=== PATIENT | female | born 1955 | race Caucasian/White ===

== ENCOUNTER 2018-05-15 08:41 | Outpatient (CLI) | payer BC ==
[2018-05-15 10:23] LABS: #Eosinphils 0.1 thou/uL (0.0-0.7); #Lymphocytes 1.8 thou/uL (1.20-3.40); #Monocytes 0.5 thou/uL (0.11-0.59); #Neutrophils 3.3 thou/uL (1.40-6.50); %Basophils 0.7 % (0.0-1.0); %Eosinophils 1.8 % (0.0-10.0); %Lymphocytes 31.9 % (21.0-51.0); %Monocytes 8.1 % (0.0-10.0); %Neutrophils 57.5 % (42.0-75.0); Mean Corpuscular HGB CONC 31.9 g/dL (32.0-36.0); Mean Corpuscular Hemoglobin 28.2 pg (27.0-31.0); Mean Corpuscular Volume 88.4 fL (78.0-98.0); Mean Platelet Volume 8.4 fL (7.4-10.4); Platelet Count 200 thou/uL (130-400); RBC Distribution Width 12.7 % (11.5-14.5); Red Blood Cell (RBC) Count 4.24 mill/uL (4.20-5.40); White Blood Cell (WBC) Count 5.8 thou/uL (4.8-10.8)
[2018-05-15 10:28] LABS: INR-International Normal Ratio 0.9; PTT 27.8 SEC (22.9-36.1); Prothrombin Time 12.3 SEC (12.0-14.7)
[2018-05-15 10:34] LABS: Bilirubin Negative (Negative); Blood, Urine Negative (Negative); Clarity CLEAR (Clear); Glucose, Urine (Dipstick) >=1000 mg/dL (Negative); Leukocyte Negative (Negative); Nitrite Negative (Negative); Protein, Urine (Dipstick) Negative (Neg-Trace); Specific Gravity, Urine 1.036 (1.002-1.036); Urobilinogen 0.2 mg/dL (0.2-1.0)
[2018-05-15 10:37] LABS: Bacteria/HPF None Seen HPF (None Seen); Hyaline Casts/LPF 0-3 HYALINE CAST LPF (0-3 Hyaline); Pathc Cast-AUWi Flag 0.14 (0-2.49); RBC/HPF 0-3 HPF (0-3); Squamous Epithelial None Seen HPF (0-3); WBC/HPF 0-3 HPF (0-3)
[2018-05-15 10:44] LABS: Anion Gap 16 mmol/L (10-20); BUN (Urea Nitrogen) 18 mg/dL (9.8-20.1); Calc. Creatinine Clearance 0 mL/min (70-130); Calcium 9.8 mg/dL (7.8-10.44); Carbon Dioxide 23 mmol/L (23-31); Chloride 103 mmol/L (98-107); Estimated GFR-MDRD 75; Glucose 136 mg/dL (80-115); Potassium 4.2 mmol/L (3.5-5.1); Sodium 138 mmol/L (136-145)
--- NOTE | 2018-05-15 13:02 | RAD ---
CHEST 2 VIEWS: Date: 05/15/18 HISTORY: Preop. FINDINGS: No comparison. Cardiac silhouette and pulmonary vasculature are unremarkable. Mediastinum is midline. No confluent a ir space consolidation, pneumothorax, or pleural fluid. IMPRESSION: No active cardiopulmonary abnormalities are demonstrated. POS: [facility]
--- NOTE | 2018-05-16 07:29 | EKG ---
Test Reason : Blood Pressure : / mmHG Vent. Rate : 060 BPM Atrial Rate : 060 BPM P-R Int : 156 ms QRS Dur : 088 ms QT Int : 410 ms P-R-T Axes : 049 013 029 degrees QTc Int : 410 ms Normal sinus rhythm Cannot rule out Anterior infarct , age undetermined Poor anterior R wave progression Abnormal ECG When compared with ECG of 06-MAR-2011 09:59, [place] interval has increased Confirmed by DR. Aung GORDILLO ([id number]) on 05/16/2018 7:29:00 AM Referred By: ELVIN Confirmed By:DR. Aung GORDILLO
== END 2018-05-15 08:42 | disposition home or self-care (01) ==
LOC: LABBT 08:41
PROVIDERS: ATTEND Orthopaedic Surgery
DX: Z01.818 Encounter for other preprocedural examination (principal); M17.11 Unilateral primary osteoarthritis, right knee
CPT/HCPCS: 71046; 80048; 81001; 85025; 85610; 85730; 87081; 93005; 93010

== ENCOUNTER 2018-05-15 08:45 | Inpatient (IN) | payer BC, MEDICARE ==
[2018-05-27] MEDS ORDERED: Vancomycin HCl 1.5 GM in Sodium Chloride 0.9% 250 ML 300 ML IVPB SCH (07:30)
[2018-05-27] MEDS ORDERED: Midazolam HCl 2 mg/2 ml Vial ONE (07:46)
[2018-05-27] MEDS ORDERED: Fentanyl 100 MCG/2 ML VIAL ONE ×3 (07:46→11:54)
[2018-05-27] MEDS ORDERED: CEFAZOLIN/Water 2 GM/20 ML SYRINGE ONE (07:48)
[2018-05-27] MEDS ORDERED: Sodium Chloride 0.9% 100 ML ONE (07:48)
[2018-05-27] MEDS ORDERED: Ondansetron HCl/PF 4 MG/2 ML Vial IVP PRN ×3 (08:25→10:30)
[2018-05-27] MEDS ORDERED: Ketorolac Tromethamine 30 MG/ML VIAL IVP PRN (08:25)
[2018-05-27] MEDS ORDERED: Promethazine HCl 25 MG/ML VIAL IM PRN ×3 (08:25→10:30)
[2018-05-27] MEDS ORDERED: traMADol HCl 50 MG TAB PO PRN ×2 (08:25→08:55)
[2018-05-27] MEDS ORDERED: Zolpidem Tartrate 5 MG TAB PO PRN ×2 (08:25→08:55)
[2018-05-27] MEDS ORDERED: Fentanyl 100 MCG/2 ML VIAL SLOW IVP PRN ×2 (08:55)
[2018-05-27] MEDS ORDERED: Acetaminophen 325 MG TAB PO PRN (08:55)
[2018-05-27] MEDS ORDERED: Morphine 4 MG/ML Carpuject IVP PRN (08:55)
[2018-05-27] MEDS ORDERED: HYDROcodone/Acetaminophen 10/325 mg Tablet PO PRN ×2 (08:55)
[2018-05-27] MEDS ORDERED: diphenhydrAMINE 25 MG CAP PO PRN (08:55)
[2018-05-27] MEDS ORDERED: Tranexamic Acid 1,000 MG in Sodium Chloride 0.9% 100 ML IVPB SCH (09:00)
[2018-05-27] MEDS ORDERED: Promethazine HCl 25 MG/ML VIAL SLOW IVP PRN (10:30)
--- NOTE | 2018-05-27 11:24 | OP ---
PREOPERATIVE DIAGNOSIS: Degenerative joint disease, right knee. POSTOPERATIVE DIAGNOSIS: Degenerative joint disease, right knee. SURGEON: Cem Alatorre M.D. FOUNDATION ENGINEER: Waldemar Moraes PA-C. BLOOD LOSS: Minimal. SPECIMEN: None. DRAINS: None. COMPLICATIONS: None. IMPLANTS USED: [place] [employer] 4 femur, 5 tibia, 9 mm CSX3 polyethylene, and A29 patella. PROCEDURE IN DETAIL: After informed consent was obtained in the preoperative holding area. The sommer ent was taken to the operative suite where general anesthesia was induced. Once adequate level of ge neral anesthesia was obtained, the patient was positioned and a well-padded tourniquet was placed raj und the right proximal thigh. The right lower extremity was then prepped and draped in the usual yasmeen rile fashion. Prior to exsanguination, a time out was called and all members of the surgical team ag chele upon site, surgeon, and patient. The extremity was then exsanguinated and the tourniquet was ra ised. A midline longitudinal incision was then made directly over the patella extending two fingerbr eadths above the superior pole of the patella and two fingerbreadths inferior to the inferior patella r pole of the patella Deeper subcutaneous layers were dissected sharply and local bleeding was cont rolled with Bovie electrocautery. A quad tendon longitudinal split was then made sharply and a media n parapatellar arthrotomy was carried out both sharp and with Bovie electrocautery, carried down to o ne fingerbreadth medial to the tibial tubercle. The knee was then placed into flexion and the patell a was everted nicely, and a copious fat pad ectomy was performed allowing for greater exposure of the tibia. The computer-assisted distal femoral fiducial was then placed and pinned firmly, and the dis alondra femoral cutting guide was pinned firmly into place. The oscillating saw was then used to remove the appropriate amount of bone. The 4-in-1 cutting block was then placed on the distal femur and the oscillating saw was used to remove the appropriate amount of bone off of the anterior, posterior, an d chamfer cuts. After completion of bone cuts, the anterior cruciate ligament was resected sharply a nd the posterior cruciate ligament retractor was placed and the tibia was subluxed for better exposur e. Partial meniscectomies were carried out, and the tibial computer-assisted fiducial was pinned, an d the cutting guide was placed. Oscillating saw was then used to remove the bone with Hohmann retrac tors used to take care and protect the collateral ligaments. After the tibial resection was performe d, a laminar claim examiner was placed in between the freshened bone cuts. The knee placed at 90 degrees a nd further bilateral meniscectomies were carried out, and the curved osteotome and curettage was used to remove any excess bone spurs in the posterior compartment. The trial femoral component, tibial b aseplate were placed with the appropriate polyethylene trial insert with an appropriate polyethylene spacer and patellar button. The knee was taken through full range of motion with flexion and extensi on from 0-90 degrees and patellar broach squarely in the trochlea without any squinting or subluxatio n noted. The knee was also stable to varus and valgus stressing at 0, 15, 45, and 90 degrees of flex ion. The drawer was negative. All trial components were then removed and the keel punch was used to provide the appropriate defect in the tibia with a mallet. The freshened bone cuts were copiously i rrigated with pulsatile lavage of about 1-1/2 liters to remove all excess debris. The freshened bone cuts were then dried and with suction and lap sponge. The knee was placed in flexion and retractors were placed to provide access to all bone cuts. Tobramycin impregnated methyl methacrylate cement w as then placed on the freshened bone cuts and implants which were malleted firmly into place. Curett age and [place] elevators were used to remove any excess bone cement. The knee was placed into full ex tension and the patellar button was placed under compression, and the cement was allowed to cure. On ce completed, the components were again taken through full range of motion and copious irrigation of the knee was carried out with another liter of normal saline. All components were inspected fully wi th full range of motion and varus and valgus stressing. There was no laxity noted and full extension was observed clinically. Primary closure was accomplished with #2 interrupted Vicryl stitch of the a rthrotomy defect. This was oversewn with a #2 running Quill barbed stitch. The gravitational platel et system was then injected into the arthrotomy prior to closure. The subcutaneous layer was then cl osed with a running 0 barbed Monocryl stitch and skin closure accomplished with a running subcuticula r 3-0 Monocryl barbed Quill stitch and augmented with cement on the skin. Tourniquet was lowered. G ood spontaneous return of distal pulses was noted clinically and a sterile dressing was applied to th e incision. The procedure was terminated without any complications. The patient was awakened in the operative suite and the tourniquet was removed, and the patient was taken to the recovery room in st able condition.
--- NOTE | 2018-05-27 12:41 | RAD ---
RIGHT KNEE TWO VIEWS: HISTORY: Postop. FINDINGS: The bones are demineralized. There has been placement of a total knee prosthesis, which is in good p osition. No evidence of fracture. IMPRESSION: Placement of a total knee prosthesis. POS: [facility]
[2018-05-27 12:48] VITALS: BMI 41.2
[2018-05-27] MEDS: Aspirin 81 mg Enteric Coated Tablet PO SCH ×2 (13:43→19:36)
[2018-05-27] MEDS: Sodium Chloride 0.9% 1,000 ML IV SCH ×2 (13:44→17:58)
[2018-05-27] MEDS ORDERED: Ropivacaine 0.2% HCl/PF (40 MG/20 ML VIAL) ONE (13:47)
[2018-05-27] MEDS ORDERED: Ropivacaine 0.5% HCl/PF (150 MG/30 ML VIAL) ONE (13:47)
[2018-05-27] MEDS ORDERED: Ketorolac Tromethamine 30 MG/ML VIAL IM SCH (14:00)
[2018-05-27] MEDS ORDERED: PROPOFOL 200 MG/20 ML VIAL ONE (14:30)
[2018-05-27] MEDS ORDERED: Ondansetron HCl/PF 4 MG/2 ML Vial ONE (14:30)
[2018-05-27] MEDS ORDERED: Lidocaine 1% PF 5 ML VIAL ONE (14:30)
[2018-05-27] MEDS: CEFAZOLIN/Water 2 GM/20 ML SYRINGE SLOW IVP SCH (18:05)
[2018-05-27] MEDS: HYDROcodone/Acetaminophen 10/325 mg Tablet PO PRN (19:36)
[2018-05-27] MEDS: traMADol HCl 50 MG TAB PO PRN (21:15)
[2018-05-27] MEDS: Fentanyl 100 MCG/2 ML VIAL IV PRN (22:33)
[2018-05-28] MEDS: CEFAZOLIN/Water 2 GM/20 ML SYRINGE SLOW IVP SCH (02:58)
[2018-05-28] MEDS: HYDROcodone/Acetaminophen 10/325 mg Tablet PO PRN ×4 (03:01→20:00)
[2018-05-28] MEDS: Sodium Chloride 0.9% 1,000 ML IV SCH ×2 (03:46→15:43)
[2018-05-28 04:44] LABS: #Eosinphils 0.1 thou/uL (0.0-0.7); #Lymphocytes 1.5 thou/uL (1.20-3.40); #Monocytes 0.8 thou/uL (0.11-0.59); #Neutrophils 6.7 thou/uL (1.40-6.50); %Basophils 0.4 % (0.0-1.0); %Eosinophils 0.7 % (0.0-10.0); %Lymphocytes 16.1 % (21.0-51.0); %Neutrophils 73.8 % (42.0-75.0); Hemoglobin 11.3 g/dL (12.0-16.0); Mean Corpuscular Hemoglobin 28.1 pg (27.0-31.0); Mean Corpuscular Volume 90.8 fL (78.0-98.0); Mean Platelet Volume 8.9 fL (7.4-10.4); Platelet Count 181 thou/uL (130-400); RBC Distribution Width 12.9 % (11.5-14.5); Red Blood Cell (RBC) Count 4.02 mill/uL (4.20-5.40)
[2018-05-28 04:57] LABS: Anion Gap 12 mmol/L (10-20); BUN (Urea Nitrogen) 18 mg/dL (9.8-20.1); Calc. Creatinine Clearance 143 mL/min (70-130); Calcium 8.6 mg/dL (7.8-10.44); Carbon Dioxide 24 mmol/L (23-31); Chloride 105 mmol/L (98-107); Estimated GFR-MDRD 75; Glucose 158 mg/dL (80-115); Potassium 4.2 mmol/L (3.5-5.1); Sodium 137 mmol/L (136-145)
--- NOTE | 2018-05-28 06:26 | CON ---
DATE OF CONSULTATION: 05/28/2018 CHIEF COMPLAINT: Right knee replacement. HISTORY OF PRESENT ILLNESS: The patient is a 62-year-old female who has been having significant righ t knee degenerative joint disease since 2016. She has been receiving cortisone injections for such u ntil they finally quit working. She had finally seen Dr. Alatorre for definitive care and he has offer ed her a right knee replacement. This was performed on 05/27/2018. I have been consulted to take ca re of her medically. PAST MEDICAL HISTORY: Non-insulin dependent diabetes, hypertension, dyslipidemia, irritable bowel sy ndrome and narcolepsy. She also has chronic sinus infections. Degenerative joint disease. PAST SURGICAL HISTORY: Includes 2 sinus surgeries and now the aforementioned right knee replacement. SOCIAL HISTORY: She does not drink or smoke or use illicit drugs. ALLERGIES: No known drug allergies. CURRENT MEDICATIONS ON ADMISSION: Sulfasalazine 500 mg 2 b.i.d., sertraline 200 mg daily, metformin 1000 mg b.i.d., Crestor 10 mg daily, Farxiga 10 mg daily, amlodipine 10 mg daily, Adaptonyl 200 mg ev geo day. She also has been using Actos 45 mg daily, Lasix 40 mg q.a.m. p.r.n. edema. She has been u sing Celebrex 200 mg a day for the degenerative joint disease. REVIEW OF SYSTEMS: CONSTITUTIONAL: The patient denies any recent fever, fatigue, weakness, chills. HEENT: Denies heartburn, pain in ears, eyes, nose or throat without discharge or ulcers. CHEST: Denies shortness of breath or coughing. CARDIOVASCULAR: Denies chest pain or palpitations. ABDOMEN: Denies nausea, vomiting, diarrhea. GENITOURINARY: Denies blood in urine or stool or dysuria. EXTREMITIES: She has pain in her right knee, but no other clubbing or cyanosis noted. LYMPHATICS: Denies edema or swelling or lymphadenopathy. SKIN: No new rashes or lesions. PHYSICAL EXAMINATION: VITAL SIGNS: Blood pressure is 120/45, pulse 65, respirations 16, O2 sats 94%, temperature 98.4. Devaughn english weighs 271 pounds. GENERAL: This is an obese female, alert, oriented, and cooperative. HEENT: Normocephalic and atraumatic. Pupils equal, round, reactive to light. Extraocular muscles a re intact. TMs, nares, pharynx are clear. NECK: Supple, trachea midline. CHEST: Clear to auscultation. BREAST: Deferred. HEART: Regular rate and rhythm without murmur. ABDOMEN: Soft, nontender, without organomegaly. GENITOURINARY: Deferred. EXTREMITIES: Right is in an immobilizing device with dressing dry and intact on the right knee. Oth er extremities are without clubbing, cyanosis, or edema. Normal range of motion. SKIN: Without acute rashes or lesions. NEUROLOGIC: Cranial nerves are intact. Sensory exam is intact. Mental status is clear. LABORATORY FINDINGS: There is no lab work so far. ASSESSMENT: 1. Severe degenerative joint disease, right knee, status post right knee total replacement. 2. Hypertension. 3. Non-insulin diabetes. 4. Dyslipidemia. PLAN: We will continue her routine medications, monitoring her blood pressure, blood sugars as neede d and we will serially reevaluate her until discharge. Thank you for the consultation.
[2018-05-28] MEDS: sulfaSALAzine 500 MG TAB PO SCH ×2 (08:26→17:20)
[2018-05-28] MEDS: Multivitamin W/ Minerals 1 TAB PO SCH (08:27)
[2018-05-28] MEDS: Ferrous Gluconate 324 MG TAB PO SCH ×2 (08:27→20:01)
[2018-05-28] MEDS: Aspirin 81 mg Enteric Coated Tablet PO SCH ×2 (08:27→20:01)
[2018-05-28] MEDS: Senokot S 8.6-50 MG TAB PO SCH ×2 (08:27→20:01)
[2018-05-28] MEDS: Alogliptin 25 MG TAB PO SCH (08:28)
[2018-05-28] MEDS: metFORMIN 500 MG TAB PO SCH ×2 (08:28→17:23)
[2018-05-28] MEDS: Losartan/Hydrochlorothiazide 100 mg/25 mg Tablet PO SCH (08:35)
[2018-05-28] MEDS: Ropivacaine HCl/PF 250 ML in Premix Bag 1 BAG NERVE BLCK SCH (10:38)
[2018-05-28] MEDS: Fentanyl 100 MCG/2 ML VIAL IV PRN ×2 (11:00→13:29)
[2018-05-28] MEDS: Rosuvastatin 10 MG TAB PO SCH (20:01)
[2018-05-29] MEDS: HYDROcodone/Acetaminophen 10/325 mg Tablet PO PRN ×3 (03:04→18:20)
[2018-05-29] MEDS: Sodium Chloride 0.9% 1,000 ML IV SCH ×3 (03:54→22:21)
[2018-05-29 05:31] LABS: Hemoglobin 10.4 g/dL (12.0-16.0); Mean Corpuscular HGB CONC 31.6 g/dL (32.0-36.0); Mean Corpuscular Hemoglobin 28.2 pg (27.0-31.0); Mean Corpuscular Volume 89.2 fL (78.0-98.0); Mean Platelet Volume 8.8 fL (7.4-10.4); Platelet Count 168 thou/uL (130-400); RBC Distribution Width 12.8 % (11.5-14.5); Red Blood Cell (RBC) Count 3.69 mill/uL (4.20-5.40)
[2018-05-29] MEDS: metFORMIN 500 MG TAB PO SCH ×2 (08:59→18:09)
[2018-05-29] MEDS: sulfaSALAzine 500 MG TAB PO SCH ×2 (09:00→18:09)
[2018-05-29] MEDS: Losartan/Hydrochlorothiazide 100 mg/25 mg Tablet PO SCH (09:02)
[2018-05-29] MEDS: Aspirin 81 mg Enteric Coated Tablet PO SCH ×2 (09:02→20:31)
[2018-05-29] MEDS: Ferrous Gluconate 324 MG TAB PO SCH ×2 (09:02→20:30)
[2018-05-29] MEDS: Senokot S 8.6-50 MG TAB PO SCH ×2 (09:02→20:31)
[2018-05-29] MEDS: Multivitamin W/ Minerals 1 TAB PO SCH (09:02)
[2018-05-29] MEDS: Alogliptin 25 MG TAB PO SCH (09:02)
[2018-05-29] MEDS ORDERED: guaiFENesin ER 600 MG TAB PO SCH (11:30)
[2018-05-29] MEDS: Ropivacaine HCl/PF 250 ML in Premix Bag 1 BAG NERVE BLCK SCH (14:58)
[2018-05-29] MEDS: guaiFENesin ER 600 MG TAB PO SCH (20:30)
[2018-05-29] MEDS: Rosuvastatin 10 MG TAB PO SCH (20:31)
[2018-05-30] MEDS: HYDROcodone/Acetaminophen 10/325 mg Tablet PO PRN ×4 (02:27→23:53)
[2018-05-30] MEDS: Sodium Chloride 0.9% 1,000 ML IV SCH ×2 (06:19→18:40)
[2018-05-30] MEDS: Ferrous Gluconate 324 MG TAB PO SCH ×2 (10:40→20:17)
[2018-05-30] MEDS: Aspirin 81 mg Enteric Coated Tablet PO SCH ×2 (10:40→20:17)
[2018-05-30] MEDS: Multivitamin W/ Minerals 1 TAB PO SCH (10:41)
[2018-05-30] MEDS: guaiFENesin ER 600 MG TAB PO SCH ×2 (10:41→20:18)
[2018-05-30] MEDS: metFORMIN 500 MG TAB PO SCH ×2 (10:42→16:24)
[2018-05-30] MEDS: Senokot S 8.6-50 MG TAB PO SCH ×2 (10:45→20:18)
[2018-05-30] MEDS ORDERED: Labetalol HCl 100 MG/20 ML VIAL ONE (13:26)
[2018-05-30] MEDS: Losartan/Hydrochlorothiazide 100 mg/25 mg Tablet PO SCH (13:56)
[2018-05-30] MEDS: Alogliptin 25 MG TAB PO SCH (13:56)
[2018-05-30] MEDS: sulfaSALAzine 500 MG TAB PO SCH ×2 (13:56→16:25)
[2018-05-30] MEDS: Rosuvastatin 10 MG TAB PO SCH (20:18)
[2018-05-30] MEDS: traMADol HCl 50 MG TAB PO PRN (20:35)
[2018-05-31] MEDS: Sodium Chloride 0.9% 1,000 ML IV SCH ×3 (05:21→20:42)
[2018-05-31] MEDS: Losartan/Hydrochlorothiazide 100 mg/25 mg Tablet PO SCH (09:24)
[2018-05-31] MEDS: metFORMIN 500 MG TAB PO SCH ×2 (09:24→17:06)
[2018-05-31] MEDS: guaiFENesin ER 600 MG TAB PO SCH ×2 (09:24→20:37)
[2018-05-31] MEDS: Ferrous Gluconate 324 MG TAB PO SCH ×2 (09:24→20:38)
[2018-05-31] MEDS: Alogliptin 25 MG TAB PO SCH (09:24)
[2018-05-31] MEDS: HYDROcodone/Acetaminophen 10/325 mg Tablet PO PRN ×2 (09:24→20:41)
[2018-05-31] MEDS: Aspirin 81 mg Enteric Coated Tablet PO SCH ×2 (09:24→20:37)
[2018-05-31] MEDS: Senokot S 8.6-50 MG TAB PO SCH ×2 (09:24→20:37)
[2018-05-31] MEDS: Multivitamin W/ Minerals 1 TAB PO SCH (09:24)
--- NOTE | 2018-05-31 11:18 | PRG ---
DATE OF SERVICE: 05/31/2018 SUBJECTIVE: Ludivina is now postoperative day #4 from a right total knee arthroplasty. She is doing r elatively well. She is slowly improving with her distances and she is able to ambulate about 100 fee t now. OBJECTIVE: VITAL SIGNS: Temperature 98, pulse 76, respiratory rate 18, O2 saturation on room air 93%, blood pre ssure . GENERAL: She is alert and oriented to person, place, time, and situation. Grossly nonfocal. EXTREMITIES: Incision is clean and closed without erythema. She is neurovascularly intact in the in volved extremity. ASSESSMENT: A 62-year-old white female postop day #4, right total knee arthroplasty, doing well. PLAN: Continue current Medicare, rehabilitation placement pending.
[2018-05-31] MEDS: Rosuvastatin 10 MG TAB PO SCH (20:37)
[2018-06-01] MEDS: HYDROcodone/Acetaminophen 10/325 mg Tablet PO PRN ×3 (05:02→21:05)
[2018-06-01] MEDS: metFORMIN 500 MG TAB PO SCH ×2 (09:58→17:58)
[2018-06-01] MEDS: Alogliptin 25 MG TAB PO SCH (09:59)
[2018-06-01] MEDS: Ferrous Gluconate 324 MG TAB PO SCH ×2 (09:59→20:56)
[2018-06-01] MEDS: guaiFENesin ER 600 MG TAB PO SCH ×2 (10:00→20:55)
[2018-06-01] MEDS: Losartan/Hydrochlorothiazide 100 mg/25 mg Tablet PO SCH (10:00)
[2018-06-01] MEDS: Multivitamin W/ Minerals 1 TAB PO SCH (10:00)
[2018-06-01] MEDS: Aspirin 81 mg Enteric Coated Tablet PO SCH ×2 (10:00→20:55)
[2018-06-01] MEDS: Senokot S 8.6-50 MG TAB PO SCH ×2 (10:01→21:02)
[2018-06-01] MEDS: Sodium Chloride 0.9% 1,000 ML IV SCH ×2 (10:06→20:58)
[2018-06-01] MEDS: Rosuvastatin 10 MG TAB PO SCH (20:54)
[2018-06-02] MEDS: HYDROcodone/Acetaminophen 10/325 mg Tablet PO PRN ×2 (02:18→09:38)
[2018-06-02] MEDS: Sodium Chloride 0.9% 1,000 ML IV SCH ×2 (06:49→15:11)
[2018-06-02] MEDS ORDERED: cloNIDine 0.1 MG TAB PO SCH (09:00)
[2018-06-02] MEDS: Losartan/Hydrochlorothiazide 100 mg/25 mg Tablet PO SCH (09:01)
[2018-06-02] MEDS: Alogliptin 25 MG TAB PO SCH (09:01)
[2018-06-02] MEDS: Ferrous Gluconate 324 MG TAB PO SCH (09:01)
[2018-06-02] MEDS: Multivitamin W/ Minerals 1 TAB PO SCH (09:02)
[2018-06-02] MEDS: Aspirin 81 mg Enteric Coated Tablet PO SCH (09:02)
[2018-06-02] MEDS: metFORMIN 500 MG TAB PO SCH ×2 (09:02→17:31)
[2018-06-02] MEDS: Senokot S 8.6-50 MG TAB PO SCH (09:02)
[2018-06-02] MEDS: guaiFENesin ER 600 MG TAB PO SCH (09:02)
[2018-06-02 15:34] VITALS: BP 134/76; TEMP 98.6
== END 2018-06-02 20:15 | DRG 470 ==
LOC: SJJU 05-27 06:54
PROVIDERS: ADMIT Orthopaedic Surgery; ATTEND Orthopaedic Surgery
PROC: 0SRC0J9 Replacement of Right Knee Joint with Synthetic Substitute, Cemented, Open Approach (ICD-10-PCS; principal; 2018-05-27)
DX: M17.11 Unilateral primary osteoarthritis, right knee (principal); E11.9 Type 2 diabetes mellitus without complications; I10 Essential (primary) hypertension; E78.5 Hyperlipidemia, unspecified; K58.9 Irritable bowel syndrome, unspecified; G47.419 Narcolepsy without cataplexy
CPT/HCPCS: 36415; 36416; 80048; 85027; 96374; C1713; C1776; G8978-GP-CL; G8979-GP-CJ; G8987-GO-CK; G8988-GO-CI; J1885; J2001; J2250; J2405; J2704; J2795; J3010; J3370; J7050

== ENCOUNTER 2018-05-23 12:10 | Outpatient (CLI) | payer BC | END 2018-05-23 12:11 | disposition home or self-care (01) | LOC: LABBT 12:10 | PROVIDERS: ATTEND Orthopaedic Surgery | DX: Z01.812 Encounter for preprocedural laboratory examination (principal); M17.11 Unilateral primary osteoarthritis, right knee | CPT/HCPCS: 86850; 86900; 86901 ==

== ENCOUNTER 2019-09-16 11:00 | Inpatient (IN) | payer BC ==
[2019-09-16 11:40] LABS: PTT 29.9 SEC (22.9-36.1)
[2019-09-16 11:55] LABS: #Basophils 0.1 thou/uL (0.0-0.2); #Eosinphils 0.2 thou/uL (0.0-0.7); #Monocytes 0.7 thou/uL (0.11-0.59); %Basophils 0.6 % (0.0-1.0); %Lymphocytes 18.2 % (21.0-51.0); %Neutrophils 73.1 % (42.0-75.0); Hemoglobin 11.6 g/dL (12.0-16.0); MDiff Complete? YES; Mean Corpuscular HGB CONC 33.4 g/dL (32.0-36.0); Mean Corpuscular Hemoglobin 29.5 pg (27.0-31.0); Mean Corpuscular Volume 88.1 fL (78.0-98.0); Platelet Count Less than 2 thou/uL (130-400); Platelet Morphology Comment Appears Decreased; Polychromasia SLIGHT = 2-3 cells (100X) (0-2/hpf); Red Blood Cell (RBC) Count 3.93 mill/uL (4.20-5.40); Reflex for Review?? YES; White Blood Cell (WBC) Count 10.9 thou/uL (4.8-10.8)
[2019-09-16 12:01] LABS: ALT (SGPT) 9 U/L (8-55); AST (SGOT) 13 U/L (5-34); Alkaline Phosphatase 83 U/L (40-110); Anion Gap 16 mmol/L (10-20); BUN (Urea Nitrogen) 34 mg/dL (9.8-20.1); Bilirubin, Total 0.3 mg/dL (0.2-1.2); Calc. Creatinine Clearance 0 mL/min (70-130); Calcium 9.4 mg/dL (7.8-10.44); Carbon Dioxide 23 mmol/L (23-31); Chloride 103 mmol/L (98-107); Estimated GFR-MDRD 69; Globulin 2.7 g/dL (2.4-3.5); Glucose 197 mg/dL (80-115); Potassium 4.1 mmol/L (3.5-5.1); Protein, Total 6.7 g/dL (6.0-8.3); Sodium 138 mmol/L (136-145)
[2019-09-16 12:36] LABS: Fibrinogen 452 mg/dL (253-463)
[2019-09-16 12:37] LABS: PTT 31.3 SEC (22.9-36.1); Prothrombin Time 13.3 SEC (12.0-14.7)
[2019-09-16 12:38] LABS: D-Dimer Test 1.49 *mcg/mL (0.27-0.43)
[2019-09-16 12:41] LABS: Platelet Count 3 thou/uL (130-400)
[2019-09-16] MEDS ORDERED: Acetaminophen 325 MG TAB PO PRN (13:05)
[2019-09-16] MEDS ORDERED: Ondansetron PF 4 MG/2 ML Vial IVP PRN ×2 (13:05→19:31)
[2019-09-16] MEDS ORDERED: Ondansetron ODT 4 MG TAB SL PRN (13:05)
[2019-09-16] MEDS ORDERED: Pantoprazole 40 MG VIAL ONE (13:08)
[2019-09-16] MEDS ORDERED: Dexamethasone 4 mg/ml Vial ONE (13:08)
[2019-09-16] MEDS ORDERED: predniSONE 20 MG TAB ONE (13:09)
[2019-09-16 13:17] LABS: FSP-Qualitative Normal (Normal)
[2019-09-16 16:32] VITALS: BMI 36.4
[2019-09-16] MEDS ORDERED: Zolpidem Tartrate 5 MG TAB PO PRN (19:25)
[2019-09-16] MEDS ORDERED: Dextrose 5% in Water 1,000 ML IV PRN (19:30)
[2019-09-16] MEDS ORDERED: Dextrose 50% Abboject 50 ML SYRINGE IVP PRN (19:30)
[2019-09-16] MEDS: metFORMIN 500 MG TAB PO SCH (20:46)
[2019-09-16 21:52] LABS: Hemoglobin 9.8 g/dL (12.0-16.0)
[2019-09-16 22:01] LABS: Platelet Count Less than 2 thou/uL (130-400)
[2019-09-16] MEDS: Insulin Regular 300 UNITS/3 ML VIAL SC PRN (22:43)
[2019-09-16] MEDS ORDERED: Insulin Regular 300 UNITS/3 ML VIAL SC SCH (22:45)
[2019-09-17] MEDS ORDERED: cloNIDine 0.1 MG TAB PO PRN
[2019-09-17] MEDS: Insulin Regular 300 UNITS/3 ML VIAL SC PRN ×8 (00:08→20:13)
[2019-09-17 05:12] LABS: Hemoglobin A1c 7.8 % (4.0-6.0)
[2019-09-17 05:18] LABS: Hemoglobin 9.1 g/dL (12.0-16.0); Mean Corpuscular HGB CONC 33.6 g/dL (32.0-36.0); Mean Corpuscular Hemoglobin 29.8 pg (27.0-31.0); Mean Corpuscular Volume 88.8 fL (78.0-98.0); Platelet Count Less than 2 thou/uL (130-400); RBC Distribution Width 11.9 % (11.5-14.5); Red Blood Cell (RBC) Count 3.06 mill/uL (4.20-5.40); White Blood Cell (WBC) Count 9.6 thou/uL (4.8-10.8)
[2019-09-17 05:57] LABS: #Lymphocytes 1.5 thou/uL (1.20-3.40); #Monocytes 0.6 thou/uL (0.11-0.59); #Neutrophils 7.4 thou/uL (1.40-6.50); %Basophils 0.3 % (0.0-1.0); %Eosinophils 0.5 % (0.0-10.0); %Lymphocytes 15.8 % (21.0-51.0); %Monocytes 6.3 % (0.0-10.0); %Neutrophils 77.1 % (42.0-75.0); Platelet Morphology Comment Appears Decreased
--- NOTE | 2019-09-17 07:55 | HP ---
CHIEF COMPLAINT: On admission idiopathic thrombocytopenic purpura with a platelet count less than 2. HISTORY OF PRESENT ILLNESS: The patient is a 64-year-old female who states 3 days prior to coming to the hospital, she started to have blood in her mouth. She woke up, had to spit out this blood throughout the second day. It would persists on and off. Finally on the day of admission, she noticed significant petechiae and bruising in her lower extremities, underneath her underwire of her bra was bruising where she had scratched herself the night before with excessive bruising and now, she would go to the sink and have a mouth full of blood and spit that out, so that she finally came to the ER, where a level was checked and her platelets were less than 2. At this point, Dr. Dowd was contacted for admission and the patient has never had anything similar to this since he has been treating her over the last 25 years. PAST MEDICAL HISTORY: Significant for type 2 diabetes, hypertension, dyslipidemia, depression, irritable bowel syndrome, and narcolepsy. PAST SURGICAL HISTORY: Includes a right knee surgery and a D and C in the past. PSYCHIATRIC HISTORY: She has not been hospitalized for any illnesses, but has struggled with depression in the past. 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 Does not smoke or drink. ALLERGIES: SHE IS THOUGHT TO HAVE DIARRHEA FROM LEVAQUIN AND CLINDAMYCIN, BUT NOT SURE WHAT HAPPENS ON THE LEVAQUIN FOR SURE. CURRENT MEDICATIONS: 1. Metformin 1000 mg b.i.d. 2. Losartan hydrochlorothiazide 100/25 daily. 3. Sulfasalazine 500 mg b.i.d. Her additional medicines include: 1. Sertraline 200 mg a day. 2. Actos 45 mg a day. 3. Modafinil 200 mg a day. 4. Farxiga 10 mg a day. 5. Celecoxib 200 mg a day. 6. Atorvastatin 10 mg a day. 7. Amlodipine 10 mg a day. 8. Occasional hydrocodone for severe knee pain. REVIEW OF SYSTEMS: CONSTITUTIONAL: Admits to general fatigue, malaise, and tiredness. No fevers, however. HEENT: Has had sores and blood draining from the mouth, nothing from the ears or nose. CHEST: Denies cough or shortness of breath. CARDIOVASCULAR: Denies palpitations or chest pain. GI: Denies nausea, vomiting, or diarrhea. : Denies blood in urine or stool. MUSCULOSKELETAL: Has chronic joint pain in her major joints. SKIN: Significant for bruising diffusely. NEUROLOGIC: Mentation is clear. No hallucinations, delusions, areas of hypesthesia, or anesthesia. PHYSICAL EXAMINATION: VITAL SIGNS: On admission, blood pressure 167/71, pulse is 76, temperature 99.3, respirations 16, O2 saturation 93% on room air. She weighs 247 pounds. GENERAL: This is a well-developed, well-nourished, elderly female, alert, oriented, and cooperative. HEENT: Normocephalic, atraumatic. Pupils are equal, round, and reactive to light. Extraocular muscles are intact. TMs and nares are clear. Pharynx has blebs of hematoma and blood in her pharynx. Conjunctivae without icterus or hemorrhage. NECK: Supple. Trachea midline. CHEST: Clear to auscultation. HEART: Regular rate and rhythm without murmur. BREASTS: Deferred. ABDOMEN: Soft without hepatosplenomegaly. : Deferred. EXTREMITIES: Without clubbing, cyanosis, or edema. Symmetrical lower extremity tattooing from hemosiderin. NEUROLOGIC: Cranial nerves are intact. Mental status clear. Sensory exam is intact. Gait and cerebral function not tested. LABORATORY DATA: Thus far shows WBCs 10.9, hemoglobin 11.6, hematocrit 34.6, platelets less than 2. Sodium 138, potassium 4.1, chloride 103, CO2 of 23, BUN is 34, creatinine 0.83 with a GFR of 69, glucose 197. Liver functions normal. PT is 13, PTT is 29.9 with an INR of 1. D-dimer slightly elevated at 1.49. ASSESSMENT: 1. Idiopathic thrombocytopenic purpura. 2. Hypertension. 3. Diffuse arthritis. 4. Dyslipidemia. 5. Narcolepsy. 6. Tuu-zhbdlyu-wlbwuirww diabetes. PLAN: Consistent carb diet, a.c. and at bedtime fingerstick glucose evaluations with a mild sliding scale. Platelets have been given. We will reassess H and H over the next several hours and consult Hematology in the morning for further evaluation. Job ID: [id number]
[2019-09-17] MEDS ORDERED: predniSONE 20 MG TAB PO SCH (08:00)
[2019-09-17] MEDS ORDERED: OCTAGAM 10% (5 GM/50 ML VIAL) IVPB SCH (08:30)
[2019-09-17] MEDS ORDERED: Pantoprazole 40 MG VIAL IVP SCH (09:00)
[2019-09-17] MEDS ORDERED: Insulin Glargine 20 UNITS in Pre-Filled Syringe 1 EACH SC SCH (09:00)
[2019-09-17] MEDS ORDERED: FLU VACC TS2019-20(65YR UP)/PF 180 MCG/0.5 ML SYRINGE IM ONE (09:00)
[2019-09-17] MEDS ORDERED: Dexamethasone 40 MG in Sodium Chloride 0.9% 50 ML IVPB SCH (09:00)
[2019-09-17] MEDS ORDERED: Prevnar 13-Val Conj/PF 0.5 ML SYRINGE IM ONE (09:00)
[2019-09-17] MEDS ORDERED: Losartan 25 MG TAB PO SCH (09:00)
[2019-09-17] MEDS ORDERED: Amlodipine 5 MG TAB PO SCH (09:00)
--- NOTE | 2019-09-17 09:37 | PDOC.MOPN ---
- Vital Signs Vital Signs: Vital Signs (12 hours) Temp Pulse Pulse Resp BP BP Pulse Ox 09/17/19 08:34 169/69 H 09/17/19 08:08 97.8 F 71 18 96 09/17/19 06:20 97.7 F 63 18 143/64 H 95 09/17/19 06:05 97.8 F 66 18 147/67 H 95 09/17/19 04:11 97.7 F 64 16 160/70 H 96 09/17/19 02:10 97.6 F 65 18 145/65 H 96 09/17/19 00:50 97.9 F 73 18 157/70 H 100 09/17/19 00:20 97.7 F 70 18 145/66 H 100 09/16/19 23:20 97.5 F L 73 18 188/80 H 100 09/16/19 22:55 98.3 F 73 18 163/72 H 96 Weight Weight 247 lb - Labs Result Diagrams: 09/17/19 04:25 09/16/19 11:21 Lab results: Laboratory Results - last 24 hr 09/17/19 08:13: POC Glucose 123 H 09/17/19 06:02: POC Glucose 190 H 09/17/19 04:25: Hemoglobin A1c 7.8 H 09/17/19 04:25: Triglycerides 176 H, Cholesterol 184, LDL Cholesterol, Calc 112 , HDL Cholesterol 37, Heart Disease Risk Ratio 5.0 09/17/19 04:25: WBC 9.6, RBC 3.06 L, Hgb 9.1 L, Hct 27.1 L, MCV 88.8, MCH 29.8, MCHC 33.6, RDW 11.9, Plt Count Less than 2 L*, MPV TNP, Neutrophils % 77.1 H, Neutrophils % (Manual) Not Reportable, Lymphocytes % 15.8 L, Monocytes % 6.3, Eosinophils % 0.5, Basophils % 0.3, Neutrophils # 7.4 H, Lymphocytes # 1.5, Monocytes # 0.6 H, Eosinophils # 0.0, Basophils # 0.0, Plt Morphology Comment Appears Decreased L 09/17/19 04:04: POC Glucose 275 H 09/17/19 01:57: POC Glucose 384 H 09/16/19 23:56: POC Glucose 489 H 09/16/19 22:03: POC Glucose Greater than 550 H* 09/16/19 21:24: Hgb 9.8 L, Hct 30.2 L, Plt Count Less than 2 L* 09/16/19 12:05: Plt Count 3 L*, PT 13.3, INR 1.0, APTT 31.3, Fibrinogen 452, Fibrin Degrad Products Normal, Fibrin Degrad Prod, Qt Not Reportable, D-Dimer 1.49 H 09/16/19 11:21: Sodium 138, Potassium 4.1, Chloride 103, Carbon Dioxide 23, Anion Gap 16, BUN 34 H, Creatinine 0.83, Estimated GFR (MDRD) 69, Glucose 197 H , Calcium 9.4, Total Bilirubin 0.3, AST 13, ALT 9, Alkaline Phosphatase 83, Serum Total Protein 6.7, Albumin 4.0, Globulin 2.7, Albumin/Globulin Ratio 1.5 09/16/19 11:21: WBC 10.9 H, RBC 3.93 L, Hgb 11.6 L, Hct 34.6 L, MCV 88.1, MCH 29.5, MCHC 33.4, RDW 12.0, Plt Count Less than 2 L*, MPV TNP, Neutrophils % 73.1, Lymphocytes % 18.2 L, Monocytes % 6.0, Eosinophils % 2.0, Basophils % 0.6 , Neutrophils # 8.0 H, Lymphocytes # 2.0, Monocytes # 0.7 H, Eosinophils # 0.2, Basophils # 0.1, Plt Morphology Comment Appears Decreased L, Polychromasia SLIGHT = 2-3 cells 09/16/19 11:21: PT 13.0, INR 1.0, APTT 29.9 09/16/19 11:21: Blood Type A POSITIVE, Antibody Screen NEGATIVE Status: lab reviewed by me
[2019-09-17] MEDS: Dexamethasone Sod Phosphate 40 MG in Sodium Chloride 0.9% 50 ML IVPB SCH (09:49)
[2019-09-17] MEDS: Hydrochlorothiazide 25 MG TAB PO SCH (09:51)
[2019-09-17] MEDS: metFORMIN 500 MG TAB PO SCH ×2 (09:52→20:15)
[2019-09-17] MEDS ORDERED: OCTAGAM IVPB SCH (10:00)
[2019-09-17] MEDS ORDERED: ADMIXTURE FEE IVPB SCH (10:00)
--- NOTE | 2019-09-17 13:47 | CON ---
DATE OF CONSULTATION: REASON FOR CONSULTATION: Thrombocytopenia. HISTORY OF PRESENT ILLNESS: Ms. Abernathy is a pleasant 64-year-old female, who noticed 3 days ago that she was having sores in her mouth and bleeding. She did not think much of it until yesterday when she woke up with a significant amount of blood on her gown and arm and she had a rash on her legs. She presented to the emergency room for evaluation. Her platelet count was less than 2, her hemoglobin was 11.6, and her WBCs were 10.9. She states that she did not have any nosebleeds, but had melena. She had bruising underneath her breasts from her bra, all occurring within the last few days. She denies any medical history of thrombocytopenia. Review of labs in the computer showed a platelet count of 295,000 in 2018. She states she had routine labs at her primary care physician several weeks ago, and everything was normal. The ER contacted Dr. Gibbons, who recommended a dose of high of steroids and admission for further workup. The patient received both dexamethasone and prednisone yesterday. She apparently received 5 units of platelets. This morning, her platelet count remains less than 2. She does state that her mouth is no longer bleeding. She denies any headache, blurred vision, shortness of breath, or pain. The patient states that she is on no new medications. She has had no recent febrile illnesses. No antibiotics. No recent vaccinations. No herbal supplements. PAST MEDICAL HISTORY: 1. Type 2 diabetes. 2. Hypertension. 3. Dyslipidemia. 4. Depression. 5. IBS. 6. Narcolepsy. PAST SURGICAL HISTORY: 1. Right knee surgery. 2. D and C. ALLERGIES: TO CLINDAMYCIN AND LEVAQUIN. HOME MEDICATIONS: 1. Metformin. 2. Losartan and hydrochlorothiazide. 3. Sulfasalazine. 4. Sertraline. 5. Actos. 6. Modafinil. 7. Farxiga. 8. Celecoxib. 9. Atorvastatin. 10. Amlodipine. 11. Hydrocodone. FAMILY HISTORY: No history of blood disorder. SOCIAL HISTORY: , lives alone. No alcohol, tobacco, or illicit drug use. REVIEW OF SYSTEMS: Ten-point review of systems is negative except for noted in HPI. PHYSICAL EXAMINATION: VITAL SIGNS: Temperature is 97.8, pulse is 71, respiratory rate 18, BP is 169/ 69, and she is 96% on room air. GENERAL: This is an obese female, in no acute distress. HEENT: Normocephalic and atraumatic. Pupils are equal and reactive to light. NECK: Supple. CV: Regular rate and rhythm. LUNGS: Clear. ABDOMEN: Obese, soft, and nontender. Bowel sounds are positive. EXTREMITIES: No clubbing or cyanosis. SKIN: She has a petechial rash on her lower extremities and under her breasts. HEMATOLOGIC: She has wet purpura in her mouth. NEUROLOGIC: Nonfocal. PSYCHIATRIC: She is alert, oriented, and appropriate. PERTINENT LABORATORY DATA AND X-RAYS: Current WBCs are 9.6, hemoglobin 9.1, hematocrit 27.1, platelet count is less than 2, neutrophils are 77%, and 16% lymphocytes. PT is 13.3, INR is 1, and PTT is 31.3. Sodium is 138, potassium 4.1, chloride 103, CO2 is 23, BUN is 34, creatinine 0.83, and calcium is 9.4. Bilirubin 0.3, AST is 13, ALT is 9, alkaline phosphatase is 83, serum total protein is 6.7 , albumin 4.0, and globulin 2.7. ASSESSMENT: Thrombocytopenia, likely idiopathic thrombocytopenic purpura. DISCUSSION: The patient has new onset thrombocytopenia with wet purpura. Review of home medications showed possible offending agents such Cozaar/ hydrochlorothiazide, sulfasalazine. These meds will be stopped for now. She did receive a dose of steroids IV yesterday. We will continue 40 mg of dexamethasone over the next 4 days, Due to her wet purpura and bleeding issues, we will give her one dose of IVIG today. I do not recommend transfusion of any further platelets as she will continue to destroy them. Agree with ultrasound of her abdomen to rule out splenomegaly; however, generally with splenomegaly, you do not have a platelet count this low. I expect her blood sugars to be elevated over the next several days and her primary care doctor has adjusted her insulin and sliding scale. Case has been discussed with Dr. Gibbons, Dr. El, and Dr. Anderson. She will likely be in the hospital for the next several days and will have a CBC daily. Monitor closely for bleeding. Thank you for the consult. Job ID: [id number] [facility]
[2019-09-17] MEDS: Acetaminophen 325 MG TAB PO PRN (15:07)
--- NOTE | 2019-09-17 16:29 | ULT ---
Sonogram abdomen complete HISTORY: Abdominal pain. Possible splenomegaly. FINDINGS: Gallbladder is unremarkable without focal stone evident. Common duct is 0.4 cm. Liver has n ormal appearance without focal mass or intrahepatic biliary dilatation. No free fluid. Spleen measures up to 11.6 cm. Normal appearance. The kidneys and visualized portions of abdominal aorta, IVC, and pancreas are unremarkable. IMPRESSION: Normal-appearing spleen. No abnormalities are demonstrated.
[2019-09-17] MEDS ORDERED: cloNIDine 0.1 MG TAB PO SCH ×2 (20:15→23:45)
[2019-09-17] MEDS: cloNIDine 0.1 MG TAB PO PRN (20:20)
[2019-09-17] MEDS: sulfaSALAzine 500 MG TAB PO SCH (21:02)
[2019-09-17] MEDS ORDERED: Insulin Regular 300 UNITS/3 ML VIAL SC SCH (23:45)
[2019-09-18 05:03] LABS: #Eosinphils 0.1 thou/uL (0.0-0.7); #Lymphocytes 1.5 thou/uL (1.20-3.40); #Monocytes 0.6 thou/uL (0.11-0.59); #Neutrophils 5.8 thou/uL (1.40-6.50); %Basophils 0.3 % (0.0-1.0); %Eosinophils 0.8 % (0.0-10.0); %Lymphocytes 18.9 % (21.0-51.0); %Monocytes 7.4 % (0.0-10.0); %Neutrophils 72.6 % (42.0-75.0); Hemoglobin 8.3 g/dL (12.0-16.0); Mean Corpuscular Hemoglobin 28.8 pg (27.0-31.0); Mean Corpuscular Volume 87.3 fL (78.0-98.0); Platelet Count Less than 2 thou/uL (130-400); Red Blood Cell (RBC) Count 2.87 mill/uL (4.20-5.40)
[2019-09-18] MEDS: Insulin Regular 300 UNITS/3 ML VIAL SC PRN ×4 (06:42→21:50)
[2019-09-18] MEDS: metFORMIN 500 MG TAB PO SCH ×2 (09:25→20:26)
[2019-09-18] MEDS: Pioglitazone HCl 15 MG TAB PO SCH (09:25)
[2019-09-18] MEDS: Amlodipine 5 MG TAB PO SCH ×2 (09:26→20:26)
[2019-09-18] MEDS: Hydrochlorothiazide 25 MG TAB PO SCH (09:26)
[2019-09-18] MEDS: Insulin Glargine 30 UNITS in Pre-Filled Syringe 1 EACH SC SCH (09:26)
[2019-09-18] MEDS: Dexamethasone Sod Phosphate 40 MG in Sodium Chloride 0.9% 50 ML IVPB SCH (09:27)
[2019-09-18] MEDS: sulfaSALAzine 500 MG TAB PO SCH ×2 (09:32→20:26)
--- NOTE | 2019-09-18 12:43 | PDOC.MOPN ---
Interval History: c/o bleeding in mouth, muscle aches. - Vital Signs Vital Signs: Vital Signs (12 hours) Temp Pulse Resp BP BP Pulse Ox 09/18/19 09:26 70 152/70 H 98 09/18/19 07:37 98.4 F 70 16 152/70 H 98 09/18/19 04:00 98.4 F 71 16 165/72 H 94 L Weight Weight 247 lb - Physical Exam General: Alert, Oriented x3, No acute distress HEENT: Other (blood clot right lip) Lungs: Clear to auscultation, Normal air movement Cardiovascular: Regular rate, Normal S1, Normal S2, No murmurs, Gallops, Rubs Abdomen: Normal bowel sounds, Soft, No tenderness, No hepatospenomegaly, No masses Extremities: No clubbing, No cyanosis, No edema, Normal pulses, No tenderness/ swelling, Other (petechial rash on BLE) Neurological: Normal speech Psych/Mental Status: Mental status NL - Labs Result Diagrams: 09/18/19 04:31 09/16/19 11:21 Lab results: Laboratory Results - last 24 hr 09/18/19 11:24: POC Glucose 194 H 09/18/19 04:34: POC Glucose 215 H 09/18/19 04:31: WBC 8.0, RBC 2.87 L, Hgb 8.3 L, Hct 25.1 L, MCV 87.3, MCH 28.8, MCHC 33.0, RDW 12.0, Plt Count Less than 2 L*, MPV TNP, Neutrophils % 72.6, Neutrophils % (Manual) Not Reportable, Lymphocytes % 18.9 L, Monocytes % 7.4, Eosinophils % 0.8, Basophils % 0.3, Neutrophils # 5.8, Lymphocytes # 1.5, Monocytes # 0.6 H, Eosinophils # 0.1, Basophils # 0.0 09/17/19 23:53: POC Glucose 327 H 09/17/19 19:49: POC Glucose 406 H 09/17/19 16:21: POC Glucose 303 H 09/17/19 14:32: POC Glucose 248 H 09/17/19 12:38: POC Glucose 242 H Status: lab reviewed by me A/P - Problem (1) Idiopathic thrombocytopenia purpura Current Visit: No Code(s): D69.3 - IMMUNE THROMBOCYTOPENIC PURPURA Status: Acute - Plan Plan: Patient on high dose dexamethasone and recd dose of IVIG yesterday afternoon Platelets early this am remain <[address] Clifford, need another 24 hours for possible response continue supportive care monitor for new bleeding. CBC in am may get additional dose of IVIG tomorrow.
[2019-09-19 04:41] LABS: #Lymphocytes 2.3 thou/uL (1.20-3.40); #Monocytes 0.7 thou/uL (0.11-0.59); #Neutrophils 6.8 thou/uL (1.40-6.50); %Basophils 0.2 % (0.0-1.0); %Eosinophils 0.5 % (0.0-10.0); %Lymphocytes 23.2 % (21.0-51.0); %Monocytes 7.1 % (0.0-10.0); Hemoglobin 7.6 g/dL (12.0-16.0); Mean Corpuscular HGB CONC 32.9 g/dL (32.0-36.0); Mean Corpuscular Hemoglobin 28.7 pg (27.0-31.0); Mean Corpuscular Volume 87.2 fL (78.0-98.0); Platelet Count Less than 2 thou/uL (130-400); Red Blood Cell (RBC) Count 2.64 mill/uL (4.20-5.40); White Blood Cell (WBC) Count 9.9 thou/uL (4.8-10.8)
[2019-09-19 04:57] LABS: Anion Gap 15 mmol/L (10-20); BUN (Urea Nitrogen) 47 mg/dL (9.8-20.1); Calc. Creatinine Clearance 132 mL/min (70-130); Calcium 9.3 mg/dL (7.8-10.44); Carbon Dioxide 23 mmol/L (23-31); Chloride 105 mmol/L (98-107); Estimated GFR-MDRD 79; Glucose 141 mg/dL (80-115); Potassium 3.9 mmol/L (3.5-5.1); Sodium 139 mmol/L (136-145)
[2019-09-19] MEDS: Insulin Regular 300 UNITS/3 ML VIAL SC PRN ×4 (06:36→21:06)
[2019-09-19] MEDS: Dexamethasone Sod Phosphate 40 MG in Sodium Chloride 0.9% 50 ML IVPB SCH (08:59)
[2019-09-19] MEDS: metFORMIN 500 MG TAB PO SCH ×2 (08:59→19:58)
[2019-09-19] MEDS: Hydrochlorothiazide 25 MG TAB PO SCH (08:59)
[2019-09-19] MEDS: Insulin Glargine 30 UNITS in Pre-Filled Syringe 1 EACH SC SCH (08:59)
[2019-09-19] MEDS: Pioglitazone HCl 15 MG TAB PO SCH (09:00)
[2019-09-19] MEDS: Amlodipine 5 MG TAB PO SCH ×2 (09:00→19:58)
[2019-09-19] MEDS: sulfaSALAzine 500 MG TAB PO SCH (10:04)
[2019-09-19] MEDS ORDERED: OCTAGAM IVPB SCH (12:45)
[2019-09-19] MEDS ORDERED: ADMIXTURE FEE IVPB SCH (12:45)
[2019-09-19] MEDS: cloNIDine 0.1 MG TAB PO SCH (19:59)
[2019-09-19] MEDS: Pantoprazole 40 MG VIAL IVP SCH (21:06)
[2019-09-19] MEDS: Acetaminophen 325 MG TAB PO PRN (21:19)
[2019-09-20] MEDS: cloNIDine 0.1 MG TAB PO PRN (04:19)
[2019-09-20 05:14] LABS: #Eosinphils 0.1 thou/uL (0.0-0.7); #Lymphocytes 2.4 thou/uL (1.20-3.40); #Monocytes 0.7 thou/uL (0.11-0.59); #Neutrophils 5.9 thou/uL (1.40-6.50); %Basophils 0.2 % (0.0-1.0); %Eosinophils 0.7 % (0.0-10.0); %Lymphocytes 26.1 % (21.0-51.0); %Monocytes 7.7 % (0.0-10.0); %Neutrophils 65.2 % (42.0-75.0); Mean Corpuscular HGB CONC 33.5 g/dL (32.0-36.0); Mean Corpuscular Hemoglobin 29.2 pg (27.0-31.0); Mean Corpuscular Volume 87.3 fL (78.0-98.0); Platelet Count Less than 2 thou/uL (130-400); RBC Distribution Width 12.1 % (11.5-14.5); Red Blood Cell (RBC) Count 2.39 mill/uL (4.20-5.40)
[2019-09-20] MEDS: Insulin Regular 300 UNITS/3 ML VIAL SC PRN ×3 (06:46→20:46)
[2019-09-20] MEDS: Hydrochlorothiazide 25 MG TAB PO SCH (09:00)
[2019-09-20] MEDS: cloNIDine 0.1 MG TAB PO SCH ×2 (09:00→20:45)
[2019-09-20] MEDS ORDERED: Insulin Glargine 40 UNITS in Pre-Filled Syringe 1 EACH SC SCH (09:00)
[2019-09-20] MEDS: Pantoprazole 40 MG VIAL IVP SCH ×2 (09:00→20:46)
[2019-09-20] MEDS: metFORMIN 500 MG TAB PO SCH ×2 (09:01→20:45)
[2019-09-20] MEDS: Pioglitazone HCl 15 MG TAB PO SCH (09:01)
[2019-09-20] MEDS: Amlodipine 5 MG TAB PO SCH ×2 (09:06→20:46)
[2019-09-20] MEDS: Dexamethasone Sod Phosphate 40 MG in Sodium Chloride 0.9% 50 ML IVPB SCH (09:08)
[2019-09-20 09:57] LABS: Hemoglobin 7.4 g/dL (12.0-16.0); Platelet Count Less than 2 thou/uL (130-400)
[2019-09-20 23:21] LABS: Hemoglobin 8.8 g/dL (12.0-16.0)
[2019-09-21 05:36] LABS: Mean Corpuscular HGB CONC 34.6 g/dL (32.0-36.0); Mean Corpuscular Hemoglobin 30.4 pg (27.0-31.0); Mean Platelet Volume 16.3 fL (7.4-10.4); Platelet Count Less than 2 thou/uL (130-400); White Blood Cell (WBC) Count 20.1 thou/uL (4.8-10.8)
[2019-09-21 05:52] LABS: Band 1 % (5-11); Eosinophils 1 % (0-10); Hypochromia SLIGHT = 6-15 cells (100X) (0-5/hpf); Lymphocytes 31 % (21-51); MDiff Complete? YES; Monocytes 8 % (0-10); Neutrophil 59 % (42-75); Nucleated RBC 1 % (0); Platelet Morphology Comment Appears Decreased
[2019-09-21] MEDS: Insulin Glargine 45 UNITS in Pre-Filled Syringe 1 EACH SC SCH (09:26)
[2019-09-21] MEDS: metFORMIN 500 MG TAB PO SCH ×2 (09:27→21:07)
[2019-09-21] MEDS: Hydrochlorothiazide 25 MG TAB PO SCH (09:27)
[2019-09-21] MEDS: cloNIDine 0.1 MG TAB PO SCH ×2 (09:27→21:06)
[2019-09-21] MEDS: BIOTENE MOUTH SPRAY 44.3 ML PO SCH ×3 (09:28→21:07)
[2019-09-21] MEDS: Amlodipine 5 MG TAB PO SCH ×2 (09:28→21:07)
[2019-09-21] MEDS: Pantoprazole 40 MG VIAL IVP SCH ×2 (09:30→21:07)
[2019-09-21] MEDS: Dexamethasone Sod Phosphate 40 MG in Sodium Chloride 0.9% 50 ML IVPB SCH (09:46)
[2019-09-21] MEDS: Pioglitazone HCl 15 MG TAB PO SCH (09:47)
[2019-09-21] MEDS: Insulin Regular 300 UNITS/3 ML VIAL SC PRN ×2 (16:20→22:33)
--- NOTE | 2019-09-21 16:32 | PDOC.MOPN ---
Interval History: no bleeding, scattered bruising. + petechieal rash - Vital Signs Vital Signs: Vital Signs (12 hours) Temp Pulse Resp BP BP Pulse Ox 09/21/19 09:28 69 144/63 H 09/21/19 09:27 144/63 H 09/21/19 08:00 98.3 F 69 18 144/83 H 99 Weight Weight 247 lb - Physical Exam General: Alert, Oriented x3, No acute distress HEENT: Other Lungs: Clear to auscultation, Normal air movement Cardiovascular: Regular rate, Normal S1, Normal S2, No murmurs, Gallops, Rubs Abdomen: Normal bowel sounds, Soft, No tenderness, No hepatospenomegaly, No masses Extremities: No clubbing, No cyanosis, No edema, Normal pulses, No tenderness/ swelling Neurological: Normal speech Psych/Mental Status: Mental status NL - Labs Result Diagrams: 09/21/19 04:40 09/19/19 04:13 Lab results: Laboratory Results - last 24 hr 09/21/19 11:48: POC Glucose 256 H 09/21/19 10:50: POC Glucose 212 H 09/21/19 05:54: POC Glucose 203 H 09/21/19 04:40: WBC 20.1 H, RBC 3.30 L, Hgb 10.0 L, Hct 29.0 L, MCV 88.0, MCH 30.4, MCHC 34.6, RDW 13.0, Plt Count Less than 2 L*, MPV 16.3 H, Neutrophils % (Manual) 59, Band Neuts % (Manual) 1 L, Lymphocytes % (Manual) 31, Monocytes % ( Manual) 8, Eosinophils % (Manual) 1, Neutrophils # Not Reportable, Lymphocytes # Not Reportable, Nucleated RBCs # (Man) 1 H, Hypochromia SLIGHT = 6-15 cells, Plt Morphology Comment Appears Decreased L 09/20/19 23:04: Hgb 8.8 L, Hct 25.8 L 09/20/19 20:35: POC Glucose 318 H 09/20/19 16:23: POC Glucose 275 H 09/20/19 09:38: Blood Type A POSITIVE, Antibody Screen NEGATIVE, Crossmatch See Detail Status: lab reviewed by me A/P - Problem (1) Idiopathic thrombocytopenia purpura Current Visit: No Code(s): D69.3 - IMMUNE THROMBOCYTOPENIC PURPURA Status: Acute - Plan Plan: Patient has received 4 doses Dex 40mg, 2 doses IVIG with no response. Plan nplate once available monitor CBC. bleeding precautions
[2019-09-22 04:24] LABS: Hemoglobin 6.6 g/dL (12.0-16.0); Mean Corpuscular HGB CONC 34.3 g/dL (32.0-36.0); Mean Corpuscular Hemoglobin 29.9 pg (27.0-31.0); Mean Corpuscular Volume 87.2 fL (78.0-98.0); Mean Platelet Volume 12.8 fL (7.4-10.4); Platelet Count Less than 2 thou/uL (130-400); RBC Distribution Width 13.4 % (11.5-14.5); Red Blood Cell (RBC) Count 2.22 mill/uL (4.20-5.40)
[2019-09-22 04:37] LABS: Band 5 % (5-11); Eosinophils 1 % (0-10); Lymphocytes 16 % (21-51); MDiff Complete? YES; Monocytes 6 % (0-10); Neutrophil 72 % (42-75); Nucleated RBC 5 % (0); Platelet Morphology Comment Appears Decreased
[2019-09-22] MEDS: Amlodipine 5 MG TAB PO SCH ×2 (09:27→19:46)
[2019-09-22] MEDS: Pioglitazone HCl 15 MG TAB PO SCH (09:27)
[2019-09-22] MEDS: metFORMIN 500 MG TAB PO SCH ×2 (09:28→19:45)
[2019-09-22] MEDS: Hydrochlorothiazide 25 MG TAB PO SCH (09:29)
[2019-09-22] MEDS: cloNIDine 0.1 MG TAB PO SCH ×2 (09:29→19:45)
[2019-09-22] MEDS: Insulin Glargine 45 UNITS in Pre-Filled Syringe 1 EACH SC SCH (09:30)
[2019-09-22] MEDS: BIOTENE MOUTH SPRAY 44.3 ML PO SCH ×3 (09:31→19:47)
[2019-09-22] MEDS ORDERED: Insulin Glargine 10 UNITS in Pre-Filled Syringe 1 EACH SC SCH (10:00)
[2019-09-22] MEDS: Pantoprazole 40 MG VIAL IVP SCH ×2 (12:38→19:48)
--- NOTE | 2019-09-22 13:26 | PDOC.MOPN ---
Interval History: dark stool. Mouth no longer bleeding. Denies ALVARADO, Blurred vision. - Vital Signs Vital Signs: Vital Signs (12 hours) Temp Pulse Pulse Resp BP BP BP 09/22/19 11:08 98.6 F 78 16 145/66 H 09/22/19 09:29 170/72 H 09/22/19 09:27 86 170/72 H 09/22/19 08:00 09/22/19 07:57 98.2 F 85 16 159/67 H 09/22/19 07:35 98.0 F 86 16 159/67 H 09/22/19 07:30 98.2 F 85 16 159/67 H 09/22/19 05:05 98.0 F 75 18 145/63 H 09/22/19 04:49 98.4 F 75 18 140/67 Pulse Ox 09/22/19 11:08 95 09/22/19 09:29 09/22/19 09:27 09/22/19 08:00 95 09/22/19 07:57 09/22/19 07:35 95 09/22/19 07:30 09/22/19 05:05 97 09/22/19 04:49 99 Weight Weight 247 lb - Physical Exam General: Alert, Oriented x3, No acute distress HEENT: Atraumatic, PERRLA, EOMI, Mucous membr. moist/pink, Other (mouth with dried blood) Lungs: Clear to auscultation, Normal air movement Cardiovascular: Regular rate, Normal S1, Normal S2, No murmurs, Gallops, Rubs Abdomen: Normal bowel sounds, Soft, No tenderness, No hepatospenomegaly, No masses Extremities: No clubbing, No cyanosis, No edema, Normal pulses, No tenderness/ swelling Neurological: Normal gait, Normal speech, Strength at 5/5 X4 ext, Normal tone, Sensation intact Psych/Mental Status: Mental status NL - Labs Result Diagrams: 09/22/19 04:03 09/19/19 04:13 Lab results: Laboratory Results - last 24 hr 09/22/19 11:16: POC Glucose 201 H 09/22/19 05:25: POC Glucose 179 H 09/22/19 04:03: WBC 20.0 H, RBC 2.22 L, Hgb 6.6 L, Hct 19.3 L, MCV 87.2, MCH 29.9, MCHC 34.3, RDW 13.4, Plt Count Less than 2 L*, MPV 12.8 H, Neutrophils % (Manual) 72, Band Neuts % (Manual) 5, Lymphocytes % (Manual) 16 L, Monocytes % ( Manual) 6, Eosinophils % (Manual) 1, Neutrophils # Not Reportable, Lymphocytes # Not Reportable, Nucleated RBCs # (Man) 5 H, Plt Morphology Comment Appears Decreased L 09/21/19 22:16: POC Glucose 331 H 09/21/19 20:31: POC Glucose 324 H 09/21/19 16:05: POC Glucose 292 H 09/20/19 09:38: Blood Type A POSITIVE, Antibody Screen NEGATIVE, Crossmatch See Detail Status: lab reviewed by me A/P - Problem (1) Idiopathic thrombocytopenia purpura Current Visit: No Code(s): D69.3 - IMMUNE THROMBOCYTOPENIC PURPURA Status: Acute - Plan Plan: Patient transfused 2 units PRBC Nplate approved, await delivery of medication Continue bleeding precautions Daily CBC Discussed with Dr. Clifford
[2019-09-22 19:30] LABS: Hemoglobin 8.4 g/dL (12.0-16.0); Mean Corpuscular HGB CONC 33.9 g/dL (32.0-36.0); Mean Corpuscular Hemoglobin 29.8 pg (27.0-31.0); Mean Corpuscular Volume 87.9 fL (78.0-98.0); Mean Platelet Volume 14.6 fL (7.4-10.4); Platelet Count 2 thou/uL (130-400); RBC Distribution Width 14.2 % (11.5-14.5); Red Blood Cell (RBC) Count 2.81 mill/uL (4.20-5.40); White Blood Cell (WBC) Count 19.5 thou/uL (4.8-10.8)
[2019-09-22 19:46] LABS: Band 7 % (5-11); Basophilic Stippling SLIGHT = 1-2 cells (100X) (None Seen); Lymphocytes 30 % (21-51); MDiff Complete? YES; Monocytes 5 % (0-10); Myelocyte 2 % (0-0); Neutrophil 55 % (42-75); Nucleated RBC 2 % (0); Platelet Morphology Comment Appears Decreased; Polychromasia MODERATE = 3-4 cells (100X) (0-2/hpf); Reactive Lymphocytes 1 % (0-10)
[2019-09-23 04:27] LABS: Hemoglobin 7.7 g/dL (12.0-16.0); Mean Corpuscular HGB CONC 34.6 g/dL (32.0-36.0); Mean Corpuscular Hemoglobin 30.3 pg (27.0-31.0); Mean Corpuscular Volume 87.6 fL (78.0-98.0); Mean Platelet Volume 15.4 fL (7.4-10.4); Platelet Count Less than 2 thou/uL (130-400); RBC Distribution Width 14.5 % (11.5-14.5); Red Blood Cell (RBC) Count 2.55 mill/uL (4.20-5.40); White Blood Cell (WBC) Count 19.3 thou/uL (4.8-10.8)
[2019-09-23 04:45] LABS: Band 7 % (5-11); Eosinophils 1 % (0-10); Hypochromia SLIGHT = 6-15 cells (100X) (0-5/hpf); Lymphocytes 27 % (21-51); MDiff Complete? YES; Monocytes 3 % (0-10); Neutrophil 62 % (42-75); Platelet Morphology Comment Appears Decreased
[2019-09-23] MEDS ORDERED: romiPLOStim 125 MCG VIAL SQ SCH (08:30)
[2019-09-23] MEDS ORDERED: Ramipril 5 MG CAP PO SCH (09:15)
[2019-09-23] MEDS: metFORMIN 500 MG TAB PO SCH ×2 (09:48→20:38)
[2019-09-23] MEDS: Amlodipine 5 MG TAB PO SCH ×2 (09:48→20:39)
[2019-09-23] MEDS: Hydrochlorothiazide 25 MG TAB PO SCH (09:48)
[2019-09-23] MEDS: cloNIDine 0.1 MG TAB PO SCH ×2 (09:48→20:39)
[2019-09-23] MEDS: Pantoprazole 40 MG VIAL IVP SCH ×2 (09:49→20:38)
[2019-09-23] MEDS: Pioglitazone HCl 15 MG TAB PO SCH (09:49)
[2019-09-23] MEDS: BIOTENE MOUTH SPRAY 44.3 ML PO SCH ×3 (09:51→20:40)
[2019-09-23] MEDS: Insulin Regular 300 UNITS/3 ML VIAL SC PRN (11:16)
[2019-09-23 20:17] LABS: Hemoglobin 9.5 g/dL (12.0-16.0)
[2019-09-24 03:53] LABS: Hemoglobin 8.5 g/dL (12.0-16.0); Mean Corpuscular HGB CONC 33.8 g/dL (32.0-36.0); Mean Corpuscular Hemoglobin 30.4 pg (27.0-31.0); Mean Corpuscular Volume 89.9 fL (78.0-98.0); Mean Platelet Volume 15.5 fL (7.4-10.4); Platelet Count 2 thou/uL (130-400); RBC Distribution Width 14.2 % (11.5-14.5); White Blood Cell (WBC) Count 16.7 thou/uL (4.8-10.8)
[2019-09-24 04:07] LABS: Band 5 % (5-11); Eosinophils 1 % (0-10); Lymphocytes 29 % (21-51); MDiff Complete? YES; Metamyelocyte 2 % (0-0); Monocytes 4 % (0-10); Neutrophil 59 % (42-75); Platelet Morphology Comment Appears Decreased
--- NOTE | 2019-09-24 09:13 | PDOC.MOPN ---
Interval History: Denies bleeding. States "thinking" clearly. - Vital Signs Vital Signs: Vital Signs (12 hours) Temp Pulse Resp BP Pulse Ox 09/24/19 08:00 98.8 F 80 16 151/70 H 96 Weight Weight 247 lb - Physical Exam General: Alert, Oriented x3, No acute distress HEENT: Atraumatic, PERRLA, EOMI, Mucous membr. moist/pink, Other (clots but no bleeding) Lungs: Clear to auscultation, Normal air movement Cardiovascular: Regular rate, Normal S1, Normal S2, No murmurs, Gallops, Rubs Abdomen: Normal bowel sounds, Soft, No tenderness, No hepatospenomegaly, No masses Extremities: No clubbing, No cyanosis, No edema, Normal pulses, No tenderness/ swelling Psych/Mental Status: Mental status NL - Labs Result Diagrams: 09/24/19 03:33 09/19/19 04:13 Lab results: Laboratory Results - last 24 hr 09/24/19 04:25: POC Glucose 127 H 09/24/19 03:33: WBC 16.7 H, RBC 2.80 L, Hgb 8.5 L, Hct 25.1 L, MCV 89.9, MCH 30.4, MCHC 33.8, RDW 14.2, Plt Count 2 L*, MPV 15.5 H, Neutrophils % (Manual) 59 , Band Neuts % (Manual) 5, Lymphocytes % (Manual) 29, Monocytes % (Manual) 4, Eosinophils % (Manual) 1, Metamyelocytes % (Man) 2 H, Neutrophils # Not Reportable, Lymphocytes # Not Reportable, Plt Morphology Comment Appears Decreased L 09/23/19 20:07: Hgb 9.5 L, Hct 27.4 L 09/23/19 20:07: Blood Type A POSITIVE, Antibody Screen NEGATIVE, Crossmatch See Detail 09/23/19 19:41: POC Glucose 131 H 09/23/19 16:13: POC Glucose 146 H 09/23/19 11:05: POC Glucose 271 H 09/20/19 09:38: Blood Type A POSITIVE, Antibody Screen NEGATIVE, Crossmatch See Detail Status: lab reviewed by me A/P - Problem (1) Idiopathic thrombocytopenia purpura Current Visit: No Code(s): D69.3 - IMMUNE THROMBOCYTOPENIC PURPURA Status: Acute - Plan Plan: Feels better today, states "brain working" Denies bleeding platelets improved No blood transfusion today.
[2019-09-24] MEDS: cloNIDine 0.1 MG TAB PO SCH ×2 (09:58→20:25)
[2019-09-24] MEDS: Hydrochlorothiazide 25 MG TAB PO SCH (09:58)
[2019-09-24] MEDS: metFORMIN 500 MG TAB PO SCH ×2 (09:58→20:26)
[2019-09-24] MEDS: Ramipril 5 MG CAP PO SCH (09:58)
[2019-09-24] MEDS: Amlodipine 5 MG TAB PO SCH ×2 (09:58→20:25)
[2019-09-24] MEDS: Pantoprazole 40 MG VIAL IVP SCH ×2 (09:59→20:25)
[2019-09-24] MEDS: BIOTENE MOUTH SPRAY 44.3 ML PO SCH ×3 (10:00→20:26)
[2019-09-24] MEDS: Pioglitazone HCl 15 MG TAB PO SCH (10:04)
[2019-09-25 05:15] LABS: #Basophils 0.1 thou/uL (0.0-0.2); #Eosinphils 0.3 thou/uL (0.0-0.7); #Lymphocytes 3.5 thou/uL (1.20-3.40); #Monocytes 0.8 thou/uL (0.11-0.59); #Neutrophils 6.5 thou/uL (1.40-6.50); %Basophils 0.5 % (0.0-1.0); %Eosinophils 2.3 % (0.0-10.0); %Lymphocytes 31.8 % (21.0-51.0); %Monocytes 6.9 % (0.0-10.0); %Neutrophils 58.5 % (42.0-75.0); Anisocytosis SLIGHT = 6-15 cells (100X) (0-5/hpf); Hemoglobin 7.9 g/dL (12.0-16.0); Large Platelets SLIGHT; MDiff Complete? YES; Mean Corpuscular Hemoglobin 30.7 pg (27.0-31.0); Mean Corpuscular Volume 90.5 fL (78.0-98.0); Mean Platelet Volume 15.5 fL (7.4-10.4); Platelet Count 8 thou/uL (130-400); Platelet Morphology Comment Appears Decreased; RBC Distribution Width 14.5 % (11.5-14.5); Red Blood Cell (RBC) Count 2.58 mill/uL (4.20-5.40); White Blood Cell (WBC) Count 11.1 thou/uL (4.8-10.8)
[2019-09-25] MEDS: Insulin Regular 300 UNITS/3 ML VIAL SC PRN ×3 (05:41→16:47)
[2019-09-25] MEDS ORDERED: Temazepam 15 MG CAP PO PRN (08:28)
[2019-09-25] MEDS: cloNIDine 0.1 MG TAB PO SCH ×2 (09:08→20:19)
[2019-09-25] MEDS: Hydrochlorothiazide 25 MG TAB PO SCH (09:09)
[2019-09-25] MEDS: Amlodipine 5 MG TAB PO SCH ×2 (09:09→20:08)
[2019-09-25] MEDS: metFORMIN 500 MG TAB PO SCH ×2 (09:09→20:08)
[2019-09-25] MEDS: Ramipril 5 MG CAP PO SCH (09:10)
[2019-09-25] MEDS: Pantoprazole 40 MG VIAL IVP SCH ×2 (09:10→20:04)
[2019-09-25] MEDS: Pioglitazone HCl 15 MG TAB PO SCH (09:12)
[2019-09-25] MEDS: BIOTENE MOUTH SPRAY 44.3 ML PO SCH ×3 (09:13→20:09)
--- NOTE | 2019-09-25 13:49 | PDOC.MOPN ---
Interval History: no bleeding, bruises improving. Clots removed from mouth and states she doesn't taste blood - Vital Signs Vital Signs: Vital Signs (12 hours) Temp Pulse Resp BP BP Pulse Ox 09/25/19 09:10 137/61 09/25/19 09:09 80 137/61 09/25/19 09:08 137/61 09/25/19 08:00 96 09/25/19 07:47 98.4 F 80 16 137/61 96 Weight Admit Weight 247 lb Weight 247 lb - Physical Exam General: Alert, Oriented x3, No acute distress HEENT: Atraumatic, PERRLA, EOMI, Mucous membr. moist/pink Lungs: Clear to auscultation, Normal air movement Cardiovascular: Regular rate, Normal S1, Normal S2, No murmurs, Gallops, Rubs Abdomen: Normal bowel sounds Extremities: No clubbing, No cyanosis, No edema, Normal pulses, No tenderness/ swelling Neurological: Normal gait, Normal speech, Strength at 5/5 X4 ext, Normal tone, Sensation intact, Cranial nerves 3-12 NL, Reflexes 2+ Psych/Mental Status: Mental status NL, Mood NL - Labs Result Diagrams: 09/25/19 04:09 09/19/19 04:13 Lab results: Laboratory Results - last 24 hr 09/25/19 12:34: POC Glucose 195 H 09/25/19 05:34: POC Glucose 168 H 09/25/19 04:09: WBC 11.1 H, RBC 2.58 L, Hgb 7.9 L, Hct 23.3 L, MCV 90.5, MCH 30.7, MCHC 34.0, RDW 14.5, Plt Count 8 L*, MPV 15.5 H, Neutrophils % 58.5, Neutrophils % (Manual) Not Reportable, Lymphocytes % 31.8, Monocytes % 6.9, Eosinophils % 2.3, Basophils % 0.5, Neutrophils # 6.5, Lymphocytes # 3.5 H, Monocytes # 0.8 H, Eosinophils # 0.3, Basophils # 0.1, Large Platelets SLIGHT, Plt Morphology Comment Appears Decreased L, Anisocytosis SLIGHT = 6-15 cells 09/24/19 20:30: POC Glucose 297 H 09/24/19 16:02: POC Glucose 139 H Status: lab reviewed by me A/P - Problem (1) Idiopathic thrombocytopenia purpura Current Visit: No Code(s): D69.3 - IMMUNE THROMBOCYTOPENIC PURPURA Status: Acute - Plan Plan: 1. Platelets increased to 8000 today 2. no evidence of bleeding, hgb dropped slightly 3. no transfusion today 4. once platelets > 20,000. Encouraged ambulation 5. plan for Nplate administration on Saturday am, then home.
[2019-09-26 05:04] LABS: Anion Gap 13 mmol/L (10-20); BUN (Urea Nitrogen) 17 mg/dL (9.8-20.1); Calc. Creatinine Clearance 122 mL/min (70-130); Calcium 8.4 mg/dL (7.8-10.44); Carbon Dioxide 27 mmol/L (23-31); Chloride 103 mmol/L (98-107); Estimated GFR-MDRD 72; Glucose 191 mg/dL (80-115); Potassium 4.2 mmol/L (3.5-5.1); Sodium 139 mmol/L (136-145)
[2019-09-26 05:55] LABS: #Basophils 0.1 thou/uL (0.0-0.2); #Eosinphils 0.3 thou/uL (0.0-0.7); #Lymphocytes 2.5 thou/uL (1.20-3.40); #Monocytes 0.9 thou/uL (0.11-0.59); #Neutrophils 5.6 thou/uL (1.40-6.50); %Basophils 0.5 % (0.0-1.0); %Eosinophils 2.8 % (0.0-10.0); %Lymphocytes 26.6 % (21.0-51.0); %Monocytes 9.4 % (0.0-10.0); %Neutrophils 60.7 % (42.0-75.0); Hemoglobin 7.6 g/dL (12.0-16.0); Large Platelets SLIGHT; MDiff Complete? YES; Mean Corpuscular HGB CONC 33.2 g/dL (32.0-36.0); Mean Corpuscular Hemoglobin 30.3 pg (27.0-31.0); Mean Corpuscular Volume 91.5 fL (78.0-98.0); Mean Platelet Volume 12.6 fL (7.4-10.4); Platelet Count 33 thou/uL (130-400); Platelet Morphology Comment Appears Decreased; Polychromasia SLIGHT = 2-3 cells (100X) (0-2/hpf); RBC Distribution Width 14.2 % (11.5-14.5); Red Blood Cell (RBC) Count 2.51 mill/uL (4.20-5.40); White Blood Cell (WBC) Count 9.3 thou/uL (4.8-10.8)
[2019-09-26] MEDS: Hydrochlorothiazide 25 MG TAB PO SCH (08:51)
[2019-09-26] MEDS: Amlodipine 5 MG TAB PO SCH ×2 (08:51→20:13)
[2019-09-26] MEDS: metFORMIN 500 MG TAB PO SCH ×2 (08:52→20:13)
[2019-09-26] MEDS: Pantoprazole 40 MG VIAL IVP SCH ×2 (08:52→20:11)
[2019-09-26] MEDS: cloNIDine 0.1 MG TAB PO SCH ×2 (08:52→20:13)
[2019-09-26] MEDS: BIOTENE MOUTH SPRAY 44.3 ML PO SCH ×3 (09:04→20:13)
[2019-09-26] MEDS: Ramipril 5 MG CAP PO SCH (09:56)
--- NOTE | 2019-09-26 10:51 | PDOC.MOPN ---
Interval History: feeling so much better. no bleeding in mouth. still tired but no other complaints - Vital Signs Vital Signs: Vital Signs (12 hours) Temp Pulse Resp BP BP Pulse Ox 09/26/19 09:56 138/62 09/26/19 08:52 138/62 09/26/19 08:51 81 138/62 09/26/19 08:00 94 L 09/26/19 07:34 98.8 F 76 18 113/47 L 94 L Weight Admit Weight 247 lb Weight 247 lb - Physical Exam General: Alert, Cooperative HEENT: Atraumatic, Other (ecchymoses on L cheek, no oral cavity wet purpura) Lungs: Clear to auscultation Cardiovascular: Regular rate Abdomen: Normal bowel sounds Extremities: No clubbing, No edema Skin: No rashes (+ petechiae noted) Neurological: Normal speech Psych/Mental Status: Mental status NL - Labs Result Diagrams: 09/26/19 03:49 09/26/19 03:49 Lab results: Laboratory Results - last 24 hr 09/26/19 05:39: POC Glucose 195 H 09/26/19 03:49: WBC 9.3, RBC 2.51 L, Hgb 7.6 L, Hct 22.9 L, MCV 91.5, MCH 30.3, MCHC 33.2, RDW 14.2, Plt Count 33 L, MPV 12.6 H, Neutrophils % 60.7, Neutrophils % (Manual) Not Reportable, Lymphocytes % 26.6, Monocytes % 9.4, Eosinophils % 2.8, Basophils % 0.5, Neutrophils # 5.6, Lymphocytes # 2.5, Monocytes # 0.9 H, Eosinophils # 0.3, Basophils # 0.1, Large Platelets SLIGHT, Plt Morphology Comment Appears Decreased L, Polychromasia SLIGHT = 2-3 cells 09/26/19 03:49: Sodium 139, Potassium 4.2, Chloride 103, Carbon Dioxide 27, Anion Gap 13, BUN 17, Creatinine 0.80, Estimated GFR (MDRD) 72, Glucose 191 H, Calcium 8.4 09/25/19 20:36: POC Glucose 217 H 09/25/19 16:09: POC Glucose 186 H 09/25/19 12:34: POC Glucose 195 H A/P - Problem (1) Idiopathic thrombocytopenia purpura Current Visit: No Code(s): D69.3 - IMMUNE THROMBOCYTOPENIC PURPURA Status: Acute (2) Anemia Current Visit: Yes Code(s): D64.9 - ANEMIA, UNSPECIFIED Status: Acute - Plan Plan: 1. trasnfuse 1 U PRBCs 2. ambulate today 3. home tomorrow 4. Nplate next Sat 5. f/u in our clinic Saturday for cbc
[2019-09-26] MEDS ORDERED: Acetaminophen 500 MG TAB PO SCH (11:15)
[2019-09-26] MEDS: Insulin Regular 300 UNITS/3 ML VIAL SC PRN ×2 (11:22→16:55)
[2019-09-26] MEDS: Pioglitazone HCl 15 MG TAB PO SCH (12:07)
[2019-09-27 06:15] LABS: #Eosinphils 0.3 thou/uL (0.0-0.7); #Lymphocytes 1.9 thou/uL (1.20-3.40); #Monocytes 0.6 thou/uL (0.11-0.59); #Neutrophils 4.9 thou/uL (1.40-6.50); %Basophils 0.6 % (0.0-1.0); %Eosinophils 3.8 % (0.0-10.0); %Lymphocytes 24.7 % (21.0-51.0); %Monocytes 7.8 % (0.0-10.0); %Neutrophils 63.1 % (42.0-75.0); Mean Corpuscular HGB CONC 33.7 g/dL (32.0-36.0); Mean Corpuscular Hemoglobin 31.1 pg (27.0-31.0); Mean Corpuscular Volume 92.4 fL (78.0-98.0); Mean Platelet Volume 10.4 fL (7.4-10.4); Platelet Count 80 thou/uL (130-400); RBC Distribution Width 14.1 % (11.5-14.5); White Blood Cell (WBC) Count 7.7 thou/uL (4.8-10.8)
[2019-09-27] MEDS: Pioglitazone HCl 15 MG TAB PO SCH (08:18)
[2019-09-27] MEDS: Amlodipine 5 MG TAB PO SCH ×2 (08:19→19:25)
[2019-09-27] MEDS: metFORMIN 500 MG TAB PO SCH ×2 (08:19→19:24)
[2019-09-27] MEDS: Hydrochlorothiazide 25 MG TAB PO SCH (08:19)
[2019-09-27] MEDS: cloNIDine 0.1 MG TAB PO SCH ×2 (08:19→19:24)
[2019-09-27] MEDS: Pantoprazole 40 MG VIAL IVP SCH ×2 (08:22→19:25)
[2019-09-27] MEDS: BIOTENE MOUTH SPRAY 44.3 ML PO SCH ×3 (08:22→19:26)
[2019-09-27] MEDS: Ramipril 5 MG CAP PO SCH (09:00)
--- NOTE | 2019-09-27 12:06 | PDOC.MOPN ---
Interval History: feeling great. no bleeding. ready to go home - Vital Signs Vital Signs: Vital Signs (12 hours) Temp Pulse Resp BP BP Pulse Ox 09/27/19 08:19 68 136/65 09/27/19 08:00 98.4 F 68 18 136/65 97 09/27/19 07:52 93 L Weight Admit Weight 247 lb Weight 247 lb - Physical Exam General: Alert, Cooperative HEENT: Atraumatic Lungs: Clear to auscultation Cardiovascular: Regular rate Abdomen: Normal bowel sounds Extremities: No clubbing Neurological: Normal gait, Normal speech Psych/Mental Status: Mental status NL - Labs Result Diagrams: 09/27/19 05:53 09/26/19 03:49 Lab results: Laboratory Results - last 24 hr 09/27/19 11:17: POC Glucose 240 H 09/27/19 05:53: WBC 7.7, RBC 2.90 L, Hgb 9.0 L, Hct 26.8 L, MCV 92.4, MCH 31.1 H , MCHC 33.7, RDW 14.1, Plt Count 80 L, MPV 10.4, Neutrophils % 63.1, Neutrophils % (Manual) Not Reportable, Lymphocytes % 24.7, Monocytes % 7.8, Eosinophils % 3.8, Basophils % 0.6, Neutrophils # 4.9, Lymphocytes # 1.9, Monocytes # 0.6 H, Eosinophils # 0.3, Basophils # 0.0 09/27/19 05:51: POC Glucose 140 H 09/26/19 20:19: POC Glucose 173 H 09/26/19 16:05: POC Glucose 174 H 09/26/19 11:11: Ferritin 43.62 09/23/19 20:07: Crossmatch See Detail A/P - Problem (1) Idiopathic thrombocytopenia purpura Current Visit: No Code(s): D69.3 - IMMUNE THROMBOCYTOPENIC PURPURA Status: Acute (2) Anemia Current Visit: Yes Code(s): D64.9 - ANEMIA, UNSPECIFIED Status: Acute - Plan Plan: 1. d/c to home 2. f/u with us this week for cbc and Nplate, I have given her info for this 3. no further dex
[2019-09-27] MEDS: Insulin Regular 300 UNITS/3 ML VIAL SC PRN (12:34)
[2019-09-27 19:32] VITALS: BP 132/63; TEMP 99.1
[2019-09-28] MEDS ORDERED: NPLATE SC SCH (09:00)
== END 2019-09-27 20:22 | disposition home or self-care (01) | DRG 813 ==
LOC: ERS 11:00 → ONC 14:55
PROVIDERS: ADMIT Specialist; ATTEND Specialist
PROC: 30233R1 Transfusion of Nonautologous Platelets into Peripheral Vein, Percutaneous Approach (ICD-10-PCS; principal; 2019-09-16)
PROC: 30233S1 Transfusion of Nonautologous Globulin into Peripheral Vein, Percutaneous Approach (ICD-10-PCS; 2019-09-17)
PROC: 30233N1 Transfusion of Nonautologous Red Blood Cells into Peripheral Vein, Percutaneous Approach (ICD-10-PCS; 2019-09-19)
DX: D69.3 Immune thrombocytopenic purpura (principal); E78.5 Hyperlipidemia, unspecified; I10 Essential (primary) hypertension; E11.9 Type 2 diabetes mellitus without complications; F32.9 Major depressive disorder, single episode, unspecified; K58.9 Irritable bowel syndrome, unspecified; G47.419 Narcolepsy without cataplexy; M19.90 Unspecified osteoarthritis, unspecified site; D64.9 Anemia, unspecified; Z79.899 Other long term (current) drug therapy; Z88.1 Allergy status to other antibiotic agents; Z79.84 Long term (current) use of oral hypoglycemic drugs; Z28.21 Immunization not carried out because of patient refusal
CPT/HCPCS: 36415; 36416; 36430; 80048; 80053; 80061; 82728; 83036; 85025; 85049; 85060; 85300; 85362; 85379; 85384; 85610; 85730; 86850; 86900; 86901; 93975; 96374; 96375; C9113; J1100; J1568; J1815; J7512; P9016; P9035

== ENCOUNTER 2020-04-14 07:13 | Outpatient (CLI) | payer BC, OTHER ==
[2020-04-14 14:14] LABS: #Basophils 0.1 thou/uL (0.0-0.2); #Eosinphils 0.1 thou/uL (0.0-0.7); #Lymphocytes 1.6 thou/uL (1.20-3.40); #Monocytes 0.4 thou/uL (0.11-0.59); %Basophils 0.8 % (0.0-1.0); %Eosinophils 2.2 % (0.0-10.0); %Lymphocytes 26.3 % (21.0-51.0); %Monocytes 6.3 % (0.0-10.0); %Neutrophils 64.3 % (42.0-75.0); Hemoglobin 12.5 g/dL (12.0-16.0); Mean Corpuscular HGB CONC 32.9 g/dL (32.0-36.0); Mean Corpuscular Hemoglobin 28.6 pg (27.0-31.0); Mean Platelet Volume 9.5 fL (7.4-10.4); Platelet Count 209 thou/uL (130-400); RBC Distribution Width 13.5 % (11.5-14.5); Red Blood Cell (RBC) Count 4.37 mill/uL (4.20-5.40); White Blood Cell (WBC) Count 6.2 thou/uL (4.8-10.8)
[2020-04-14 14:30] LABS: Anion Gap 14 mmol/L (10-20); BUN (Urea Nitrogen) 17 mg/dL (9.8-20.1); Calc. Creatinine Clearance 0 mL/min (70-130); Carbon Dioxide 27 mmol/L (23-31); Chloride 104 mmol/L (98-107); Estimated GFR-MDRD 70; Sodium 140 mmol/L (136-145)
[2020-04-14 14:31] LABS: Calcium 9.8 mg/dL (7.8-10.44); Glucose 140 mg/dL (80-115); INR-International Normal Ratio 0.9; Prothrombin Time 11.9 sec (12.0-14.7)
--- NOTE | 2020-04-14 16:22 | EKG ---
Test Reason : PREOP Blood Pressure : / mmHG Vent. Rate : 056 BPM Atrial Rate : 056 BPM P-R Int : 158 ms QRS Dur : 094 ms QT Int : 432 ms P-R-T Axes : -17 020 047 degrees QTc Int : 416 ms Sinus bradycardia Otherwise normal ECG Confirmed by RAMEZ BLACK ([id number]) on 04/14/2020 4:21:59 PM Referred By: ELVIN Confirmed By:RAMEZ BLACK
[2020-04-15 14:18] LABS: SARS-CoV-2 MS2 Positive; SARS-CoV-2 N Gene Negative; SARS-CoV-2 S Gene Negative; SARS-CoV-2 by NAA Not Detected (NotDetected); SARS-CoV-2 orf1ab Negative
== END 2020-04-14 07:14 | disposition home or self-care (01) ==
LOC: LABBT 07:13
PROVIDERS: ATTEND Orthopaedic Surgery
DX: Z01.818 Encounter for other preprocedural examination (principal); Z11.59 Encounter for screening for other viral diseases; M16.12 Unilateral primary osteoarthritis, left hip
CPT/HCPCS: 80048; 85025; 85610; 87081; 87635; 93005; 93010; U0003